=== PATIENT | male | born 1955 | race Two or more races ===

== ENCOUNTER 2017-04-17 00:31 | Emergency (ER) | payer MEDICAID ==
[~2017-04-17] VITALS: Ht 172.7 cm; Wt 79.8 kg
[2017-04-17] MEDS ORDERED: HYDROCODONE/APAP 5-325MG TABLET PO ONE ×2 (01:15→02:00)
[2017-04-17] MEDS ORDERED: HYDROCODONE/APAP 5-325MG TABLET ONE ×2 (01:20→02:11)
[2017-04-17] MEDS ORDERED: CEPHALEXIN MONOHYDRATE 500 MG CAPSULE PO ONE (02:00)
[2017-04-17] MEDS ORDERED: CEPHALEXIN MONOHYDRATE 500 MG CAPSULE ONE (02:13)
--- NOTE | 2017-04-17 02:14 | NUR ---
dcPatient discharged to home in stable conditon. Written and verbal after care instructions given. Patient verbalizes understanding of instructions. Patient instructions provided on using crutches. Patient left with family, advised not to drive while taking pain medication.
[2017-04-17 02:15] VITALS: BP 116/74
== END 2017-04-17 02:20 | disposition home or self-care (01) ==
LOC: ER 00:43
DX: S92.421A Displaced fracture of distal phalanx of right great toe, initial encounter for closed fracture (principal); F17.200 Nicotine dependence, unspecified, uncomplicated; X58.XXXA Exposure to other specified factors, initial encounter; Y93.01 Activity, walking, marching and hiking; Y92.9 Unspecified place or not applicable; Y99.9 Unspecified external cause status
CPT/HCPCS: 73660; A4663